=== PATIENT | male | born 1965 | race Caucasian/White ===

== ENCOUNTER 2021-03-14 20:38 | Emergency (ER) | payer OTHER ==
[~2021-03-14] VITALS: Ht 180.3 cm; Wt 88.6 kg
[2021-03-14] MEDS ORDERED: NORCO 325 MG-51 TAB PO (23:34)
[2021-03-14] MEDS ORDERED: CEPHALEXIN500 M1 PO (23:34)
[2021-03-15] VITALS: BP 130/89; PULSE 81; TEMP 98.2
== END 2021-03-15 00:01 | disposition home or self-care (01) ==
LOC: COL.ER 20:38
DX: S09.90XA Unspecified injury of head, initial encounter (principal); S01.21XA Laceration without foreign body of nose, initial encounter; S43.005A Unspecified dislocation of left shoulder joint, initial encounter; I10 Essential (primary) hypertension; V86.99XA Unspecified occupant of other special all-terrain or other off-road motor vehicle injured in nontraffic accident, initial encounter
CPT/HCPCS: J3010; J7030